=== PATIENT | female | born 1985 | race African-American/Black ===

== ENCOUNTER 2018-07-06 23:44 | Emergency (ER) | payer MEDICAID, OTHER ==
[~2018-07-06] VITALS: Ht 160 cm; Wt 64.0 kg
[2018-07-07 02:40] LABS: CLARITY URINE CLEAR (CLEAR); COLOR URINE YELLOW (YELLOW); KETONES URINE NEGATIVE (NEGATIVE); LEUKOCYTE ESTERASE URINE NEGATIVE (NEGATIVE); NITRITE URINE NEGATIVE (NEGATIVE); OCCULT BLOOD URINE 2+ (NEGATIVE); PH URINE 5.5 (4.5-8.0); PROTEIN URINE NEGATIVE (NEGATIVE); UROBILINOGEN URINE 0.2 E.U./dL (0.2-1.0)
[2018-07-07 06:39] LABS: HEMATOCRIT. 34.9 % (36.0-48.0); HEMOGLOBIN. 12.1 g/dL (12.0-16.0); MEAN CORPUSCULAR HEMOGLOBIN 29.1 pg (28.0-32.0); MEAN CORPUSCULAR VOLUME 83.8 fL (81.0-99.0); PLATELET 317 x1000/uL (130-400); RED BLOOD CELL COUNT 4.17 mill/uL (4.2-5.4); RED CELL DISTRIBUTION WIDTH 14.2 % (11.6-14.6)
[2018-07-07 06:42] LABS: CHLORIDE 107 mEq/L (98-107)
[2018-07-07 07:07] LABS: B-HCG QUANTITATIVE 2381 mIU/mL (<3)
[2018-07-07 07:50] LABS: PLATELET ESTIMATE NORMAL
[2018-07-07 09:40] VITALS: BP 119/62
== END 2018-07-07 09:58 | disposition home or self-care (01) ==
LOC: ER 23:44
DX: O46.91 Antepartum hemorrhage, unspecified, first trimester (principal); O36.4XX0 Maternal care for intrauterine death, not applicable or unspecified; F12.10 Cannabis abuse, uncomplicated; Z3A.01 Less than 8 weeks gestation of pregnancy; Z98.890 Other specified postprocedural states
CPT/HCPCS: 36415; 76801; 76817; 80053; 81003; 81025; 84702; 85025; 86850; 86900; 86901; 99284; Z7610

== ENCOUNTER 2018-09-05 13:44 | Emergency (ER) | payer OTHER ==
[~2018-09-05] VITALS: Ht 160 cm; Wt 64.0 kg
[2018-09-05] MEDS ORDERED: KETOROLAC 60MG/2ML VIAL IM STA (16:57)
[2018-09-05] MEDS ORDERED: LIDOCAINE HCL/PF 1% 10 MG/ML 5ML VIAL IJ ONE (17:00)
[2018-09-05 18:36] VITALS: BP 130/73
== END 2018-09-05 18:38 | disposition home or self-care (01) ==
LOC: ER 13:44
DX: H60.91 Unspecified otitis externa, right ear (principal); I88.9 Nonspecific lymphadenitis, unspecified; R03.0 Elevated blood-pressure reading, without diagnosis of hypertension
CPT/HCPCS: 81025; 96372; 99283; J1885